=== PATIENT | female | born 1990 | race African-American/Black ===

== ENCOUNTER 2018-09-04 20:04 | Emergency (ER) | payer OTHER ==
[~2018-09-04] VITALS: Ht 167.6 cm; Wt 84.0 kg
[2018-09-04 20:14] VITALS: BP 131/85
== END 2018-09-04 23:02 | disposition left against medical advice (07) ==
LOC: ER 20:04
DX: R42 Dizziness and giddiness (principal); Z53.21 Procedure and treatment not carried out due to patient leaving prior to being seen by health care provider